=== PATIENT | female | born 1950 | race Caucasian/White ===

== ENCOUNTER 2019-01-27 10:38 | Inpatient (IN) | payer OTHER ==
[~2019-01-27] VITALS: Ht 157.5 cm; Wt 69.4 kg
[2019-01-27 10:43] VITALS: BP 187/80
[2019-01-27] MEDS ORDERED: MOBIC7.5 MG PO (10:49)
[2019-01-27] MEDS ORDERED: UNICOMPLEX M TA1 TA1 PO (10:49)
[2019-01-27] MEDS ORDERED: CALCIUM500 M1 PO (10:49)
[2019-01-27 11:20] LABS: ABSOLUTE EOSINOPHILS 0.1 thou/uL (0.0-0.7); ABSOLUTE LYMPHOCYTES 2.5 thou/uL (0.8-5.3); ABSOLUTE MONOCYTES 0.5 thou/uL (0.0-1.2); ABSOLUTE NEUTROPHILS 4.3 thou/uL (1.6-8.1); BASOPHILS 0.4 %; EOSINOPHILS 1.3 %; HEMATOCRIT 42.8 % (37.0-47.0); HEMOGLOBIN 14.6 gm/dL (12.0-15.0); LYMPHOCYTES 33.5 %; MCH 31.6 pg (26.0-34.0); MCHC 34.2 g/dL (28.0-37.0); MCV 92.4 fL (80.0-100.0); MONOCYTES 6.6 %; MPV 9.8 fl. (7.2-11.1); NUCLEATED RBCS 0 /100WBC; PLATELET COUNT* 204 thou/uL (150-400); POLYS 58.2 %; RBC 4.63 mil/uL (4.20-5.00); RDW-CV 13.5 % (10.5-14.5); WBC 7.5 thou/uL (4.0-11.0)
[2019-01-27 11:36] LABS: ALBUMIN 3.7 g/dL (3.4-5.0); ALKALINE PHOSPHATASE 82 U/L (46-116); ANION GAP 10 mmol/L (7-16); BUN 16 mg/dL (7-18); CALCIUM 8.7 mg/dL (8.5-10.1); CHLORIDE 107 mmol/L (98-107); CO2 26 mmol/L (21-32); CREATININE 0.8 mg/dL (0.6-1.3); GLUCOSE 97 mg/dL (70-99); LIPASE 81 U/L (73-393); POTASSIUM 3.2 mmol/L (3.5-5.1); SGOT 18 U/L (15-37); SGPT 26 U/L (30-65); SODIUM 143 mmol/L (136-145); TOTAL BILIRUBIN 0.7 mg/dL (<0.1-1.0); TROPONIN-I LEVEL <0.06 ng/mL (<0.06)
[2019-01-27 11:40] LABS: INR 0.9; PROTIME 9.7 Seconds (9.20-11.50)
[2019-01-27] MEDS ORDERED: IBUPROFEN 800800 MG PO (13:18)
[2019-01-27] MEDS ORDERED: NORCO 5-325 TA1 EACH PO (13:18)
[2019-01-27 14:40] VITALS: BP 162/74
[2019-01-27 15:06] LABS: CHOLESTEROL 197 mg/dL (<200); HDL CHOLESTEROL 67 mg/dL (>40); LDL CHOLESTEROL 90 mg/dL (<100); TC:HDL 2.9 Ratio (Not establshd); TRIGLYCERIDE 204 mg/dL (<150); VLDL 41 mg/dL (<40)
[2019-01-27 15:07] LABS: SERUM ASSESSMENT Clear
[2019-01-27 15:30] VITALS: BP 158/85; BP 169/84
--- NOTE | 2019-01-27 16:30 | EKG ---
[place] [address] ELECTROCARDIOGRAM REPORT Name: KIM HARE Room: [address] ADM IN M.R.#: [id number] Admission: 01/27/19 Attend Phys: Juliann Roth MD Discharge: Date of : 52 Report #: [id number] THIS REPORT FOR: //name// [facility] ED Test Date: 2019-01-27 Test Time: 10:45:57 Pat Name: KIM HARE Department: Room: [facility] Gender: F Supervisor [employer]: Onelia TOMAS : 1950 Requested By: Jamaica Reid Order Number: [id number] MD: Fernando Streeter Measurements Intervals [place] Rate: 68 P: 33 MD: 128 QRS: 10 QRSD: 95 T: -9 QT: 421 QTc: 448 Interpretive Statements Sinus rhythm Low voltage, precordial leads Borderline T abnormalities, diffuse leads No previous ECG available for comparison Electronically Signed On 01-27-2019 16:30:00 CDT by Fernando Streeter [email or web address] <ELECTRONICALLY SIGNED> By: Fernando Streeter MD, [facility] 01/27/19 1630 1045 1045 Fernando Streeter MD, [facility] /EPI
--- NOTE | 2019-01-27 18:46 | 2DMMODE ---
[place] [address] 2 D/M-MODE ECHOCARDIOGRAM Name: KIM HARE Room: [address] IN [facility]#: [id number] Admission: 01/27/19 Attend Phys: Juliann Roth, Discharge: Date of : 52 Date of Service: 01/27/19 1845 Report #: [id number] THIS REPORT FOR: //name// APPROVED REPORT Study performed: 01/27/2019 15:26:11 EXAM: Comprehensive 2D, Doppler, and color-flow Echocardiogram Patient Location: In-Patient Room #: 200 Status: routine BSA: 1.68 HR: 60 bpm BP: 187/80 mmHg Rhythm: NSR Other Information Study Quality: Good Indications Chest Pain 2D Dimensions IVSd: 10.08 (7-11mm) LVOT Diam: 18.41 (18-24mm) LVDd: 45.31 mm PWd: 9.17 (7-11mm) Ascending Ao: 28.20 (22-36mm) LVDs: 28.74 (25-40mm) Aortic Root: 23.87 mm Volumes Left Atrial Volume (Systole) LA ESV Index: 27.90 mL/m2 Aortic Valve AoV Peak Aston.: 1.05 m/s AO Peak Gr.: 4.42 mmHg LVOT Max P.66 mmHg AO Mean Gr.: 2.15 mmHg LVOT Mean P.30 mmHg LVOT Max V: 0.82 m/s AO V2 VTI: 22.79 cm LVOT Mean V: 0.52 m/s TAVO (VTI): 2.39 cm2 LVOT V1 VTI: 20.45 cm Mitral Valve E/A Ratio: 1.60 MV Decel. Time: 151.25 ms MV E Max Aston.: 0.97 m/[place] [address] 2 D/M-MODE ECHOCARDIOGRAM Name: KIM HARE Room: [address] IN .R.#: [id number] Admission: 01/27/19 Attend Phys: Juliann Roth, Discharge: Date of : 52 Date of Service: 01/27/19 1845 Report #: [id number] PHT: 43.86 ms MVA (PHT): 5.02 cm2 TDI E/Lateral E': 9.70 E/Medial E': 8.82 Medial E' Aston.: 0.11 m/s Lateral E' Aston.: 0.10 m/s Pulmonary Valve PV Peak Aston.: 0.80 m/s PV Peak Gr.: 2.56 mmHg Tricuspid Valve RAP Estimate: 5.00 mmHg TR Peak Gr.: 24.56 mmHg RVSP: 29.00 mmHg PA Pressure: 29.00 mmHg Left Ventricle The left ventricle is normal size. There is normal LV segmental wall motion. There is normal left ventricular wall thickness. Left ventricular systolic function is normal. LVEF is 55-60%. The left ventricular diastolic function is normal. Right Ventricle The right ventricle is normal size. The right ventricular systolic function is normal. Atria The left atrium size is normal. The right atrium size is normal. Aortic Valve The aortic valve is normal in structure. No aortic regurgitation is present. There is no aortic valvular stenosis. Mitral Valve The mitral valve is normal in structure. Mild mitral regurgitation. No evidence of mitral valve stenosis. Tricuspid Valve The tricuspid valve is normal in structure. Mild tricuspid regurgitation. No pulmonary hypertension. Pulmonic Valve The pulmonary valve is normal in structure. There is no pulmonic valvular [place] [address] 2 D/M-MODE ECHOCARDIOGRAM Name: KIM HARE Room: [address] IN [facility]#: [id number] Admission: 01/27/19 Attend Phys: Juliann Roth, Discharge: Date of : 52 Date of Service: 01/27/19 1845 Report #: [id number] Great Vessels The aortic root is normal in size. IVC is normal in size and collapses >50% with inspiration. Pericardium There is no pericardial effusion. <Conclusion> The left ventricle is normal size. There is normal left ventricular wall thickness. Left ventricular systolic function is normal. LVEF is 55-60%. The left ventricular diastolic function is normal. Mild mitral regurgitation. Mild tricuspid regurgitation. No pulmonary hypertension. <ELECTRONICALLY SIGNED> By: Bienvenido Christopher MD, FACC 01/27/191844 44 44 Bienvenido Christopher MD, FACC /INF
[2019-01-27 19:30] VITALS: BP 150/70
[2019-01-28] VITALS: BP 122/61
[2019-01-28 04:00] VITALS: BP 123/93; BP 139/74
[2019-01-28 09:00] VITALS: BP 140/71
[2019-01-28 11:30] VITALS: BP 135/72; BP 154/68
[2019-01-28 13:20] VITALS: BP 135/72
[2019-01-28] MEDS ORDERED: PRINIVIL20 M1 PO (13:24)
[2019-01-28] MEDS ORDERED: IBUPROFEN 800800 M1 PO (13:26)
--- NOTE | 2019-01-29 12:34 | CON ---
[address] [address] CONSULTATION Name: HAREKIM M Room: [address] IN M.R.#: [id number] Admission: 01/27/19 Attend Phys: Juliann Roth MD Discharge: 01/28/19 Date of : 52 Report #: [id number] THIS REPORT FOR: //name// CC: Rory Roth DATE OF SERVICE: 01/28/2019 NEUROLOGY CONSULTATION HISTORY OF PRESENT ILLNESS: The patient is a 68-year-old female who was admitted for paresthesias of the left upper extremity. The patient states that she has had well over a dozen of these episodes. She sleeps on her side and after sleeping on her side, her arm can be numb, so then she turns to the other side; however, yesterday was the first time she had an episode like this just sitting up in a chair. When it happened, she became concerned and came to the Emergency Room. The patient also states that she has been lightheaded. She does not smoke. When these spells occur, she states they last quite a long time. When I asked her how long that was, she states it is approximately 10 minutes. I reviewed the CT head with her and explained it was normal, as were the carotid arteries and the echocardiogram. PAST MEDICAL HISTORY: Arthritis. PAST SURGICAL HISTORY: Cholecystectomy, breast augmentation, hysterectomy, liposuction. MEDICATIONS: Meloxicam 7.5 mg daily, multivitamin daily, calcium daily. ALLERGIES: None. PHYSICAL EXAMINATION: VITAL SIGNS: Temperature is 36.7, pulse rate 79, respiratory rate 18, blood pressure 140/71, bedside pulse oximetry 100% on room air. NEUROLOGIC: Cranial nerves 2-12 are grossly intact. Motor exam demonstrates symmetrical strength in all 4 extremities with tone and bulk normal. Reflexes are symmetrical throughout. Coordination demonstrates no evidence of dysmetria. LABORATORY DATA: Hematology: White blood cell count 7.5, hemoglobin 14.6, hematocrit 42.8, MCV 92.4, platelet count 204,000. INR 0.9. Chemistry: Sodium 143, potassium 4.5, chloride 107, carbon dioxide 26, BUN 16, creatinine 0.8, glucose 97. Liver functions unremarkable. Triglycerides 204. Cholesterol 197, LDL cholesterol 90, HDL cholesterol 67, B12 of 426. TSH 4.230, free T4 [place] 0[place]97. [place] [address] CONSULTATION Name: KIM HARE Room: [address]#: [id number] Admission: 01/27/19 Attend Phys: Juliann Roth MD Discharge: 01/28/19 Date of : 52 Report #: [id number] IMPRESSION: I explained to the patient that these episodes of numbness are not transient ischemic attack. The patient has had well over a dozen of these episodes and if these were transient ischemic attacks, she would have had a stroke some time ago. At this point, I do not recommend any further testing. If the paresthesias in the arms, continue, then she might benefit from an outpatient MRI of the cervical spine and/or EMG. The patient also has lightheadedness. This may be secondary to her blood pressure, which was elevated on admission. From a neurological point of view, I see no reason why the patient cannot be discharged. She is now on lisinopril 10 mg daily and will need to follow up with her family physician. <ELECTRONICALLY SIGNED> By: Oralia Pressley DO 01/29/19 1234 1248 [id number] Pressley DO /nt
== END 2019-01-28 14:00 | disposition still patient (30) | DRG 551 ==
LOC: M.ERS 10:38 → M.2W 13:47 → M.TBA-ER 13:47 → M.2W 14:52
PROVIDERS: Personal Emergency Response Attendant; ADMIT Internal Medicine
DX: M47.892 Other spondylosis, cervical region (principal); T79.5XXA Traumatic anuria, initial encounter; I10 Essential (primary) hypertension; X58.XXXA Exposure to other specified factors, initial encounter; Z90.710 Acquired absence of both cervix and uterus; Z90.49 Acquired absence of other specified parts of digestive tract; Z79.899 Other long term (current) drug therapy